=== PATIENT | female | born 1950 | race Caucasian/White ===

== ENCOUNTER → 2017-08-14 10:26 | Outpatient (CLI) | payer BC ==
[2014-11-29 13:16] VITALS: BMI 35.6
[~2017-08-14 10:26] MED LIST: LIPITOR80 MG PO; NORVASC2.5 MG PO; PRINIVIL20 MG PO; PROTONIX40 MG PO; RYTHMOL225 MG PO; ZYLOPRIM100 MG PO
== END | disposition home or self-care (01) ==
LOC: D.US 10:26
DX: E04.1 Nontoxic single thyroid nodule (principal)

== ENCOUNTER → 2018-03-19 08:00 | Outpatient (CLI) | payer BC ==
[2014-11-29 13:16] VITALS: BMI 35.6
== END | disposition home or self-care (01) ==
LOC: D.MAMMO 08:00
DX: Z12.31 Encounter for screening mammogram for malignant neoplasm of breast (principal)

== ENCOUNTER → 2018-04-15 16:41 | Outpatient (CLI) | payer BC ==
[2014-11-29 13:16] VITALS: BMI 35.6
== END | disposition home or self-care (01) ==
LOC: D.MAMMO 09:30
DX: R92.8 Other abnormal and inconclusive findings on diagnostic imaging of breast (principal)

== ENCOUNTER 2019-08-05 09:16 | Emergency (ER) | payer BC ==
[~2019-08-05] VITALS: Ht 167.6 cm; Wt 102.3 kg
[2019-08-05 09:18] VITALS: Ht 167.6 cm; Wt 102.3 kg
[2019-08-05 09:39] LABS: BASOPHILS 0.4 % (0-2); EOSINOPHILS 1.7 % (0-7); HEMATOCRIT 43.1 % (36.0-48.0); HEMOGLOBIN 14.3 g/dL (12-16); IMMATURE GRANULOCYTES 0.2 % (0-5); LYMPHOCYTES 22.5 % (15-50); MCH 29.2 pg (26.0-34.0); MCHC 33.2 g/dL (31.0-37.0); MCV 88.1 fL (80.0-100.0); MEAN PLATELET VOLUME 10.2 fL (7.4-10.4); NEUTROPHILS 68.2 % (40-80); PLATELET COUNT 253 10x3/uL (130-400); RBC 4.89 10x6/uL (4.00-5.40); RDW 14.3 % (11.5-14.5); WBC 4.6 10x3/uL (4.8-10.8)
[2019-08-05 09:45] LABS: ANION GAP 13.4 mmol/L (8-16); CALCIUM 9.4 mg/dL (8.5-10.1); CARBON DIOXIDE 25.7 mmol/L (21.0-32.0); POTASSIUM - SERUM 4.1 mmol/L (3.5-5.1)
--- NOTE | 2019-08-05 09:49 | NUR ---
DR ESTES NOTIFIED AND REVIEWED PT'S BEHAVIOR AND ASSESSMENT. PT IS A LOW RISK. RESOURCES GIVEN AND SHE VERBALIZES UNDERSTANDING.
[2019-08-05 10:00] LABS: ALBUMIN 3.7 g/dL (3.4-5.0); BILIRUBIN - TOTAL 0.53 mg/dL (0.2-1.3); PROTEIN - SERUM 7.6 g/dL (6.4-8.2); THYROID STIMULATING HORMONE 1.08 uIU/mL (0.36-3.74)
[2019-08-05 10:28] LABS: UDS - AMPHET NEGATIVE QUAL (NEGATIVE); UDS - BARB NEGATIVE QUAL (NEGATIVE); UDS - BENZO NEGATIVE QUAL (NEGATIVE); UDS - COCAINE NEGATIVE QUAL (NEGATIVE); UDS - OPIATE NEGATIVE QUAL (NEGATIVE); UDS - PCP NEGATIVE QUAL (NEGATIVE); UDS - THC NEGATIVE QUAL (NEGATIVE)
[2019-08-05 10:29] LABS: BILIRUBIN NEGATIVE (NEGATIVE); GLUCOSE NEGATIVE (NEGATIVE); KETONE NEGATIVE (NEGATIVE); NITRITE NEGATIVE (NEGATIVE); UROBILINOGEN NORMAL (NORMAL)
[2019-08-05 10:59] VITALS: BP 150/107
== END 2019-08-05 11:00 | disposition home or self-care (01) ==
LOC: D.ER 09:16
PROVIDERS: Family Medicine
DX: I10 Essential (primary) hypertension (principal); F32.9 Major depressive disorder, single episode, unspecified; F43.9 Reaction to severe stress, unspecified; I48.91 Unspecified atrial fibrillation; R45.851 Suicidal ideations; K21.9 Gastro-esophageal reflux disease without esophagitis; R51 Headache

== ENCOUNTER → 2020-05-05 19:54 | Outpatient (CLI) | payer MEDICARE ==
[2019-08-05 09:18] VITALS: BMI 36.4
== END | disposition home or self-care (01) ==
LOC: D.MAMMO 13:15
PROVIDERS: ATTEND Family Medicine
DX: Z12.31 Encounter for screening mammogram for malignant neoplasm of breast (principal)